=== PATIENT | female | born 1940 | race Caucasian/White ===

== ENCOUNTER 2019-03-05 06:07 | Day surgery (SDC) | payer MEDICARE, BC ==
[~2019-03-05] VITALS: Ht 157.5 cm; Wt 77.7 kg
[2019-03-05] MEDS ORDERED: LIPITOR20 MG PO (06:40)
[2019-03-05] MEDS ORDERED: LOPRESSOR 225 MG/TAB PO (06:41)
[2019-03-05] MEDS ORDERED: QUALITY CHOIC0.52 GM PO (06:42)
[2019-03-05 06:43] VITALS: BP 147/62; PULSE 68; TEMP 97.3
[2019-03-05] MEDS ORDERED: ASPIRIN 81M81 MG/TA2 PO (06:43)
[2019-03-05 08:26] VITALS: BP 99/56; PULSE 58
--- NOTE | 2019-03-05 08:26 | NUR ---
Patient returns to room 1 per cart from surgery and is awake and alert. IV fluids infusing and site is free of redness. Temp 97.5 and room air sats 94%. Denies pain or nausea. Aguilar set dressing dry on the right upper hip. No drainage or bruising noted. Siderails up x2 and call light in reach.
[2019-03-05 08:41] VITALS: BP 111/55; PULSE 53
--- NOTE | 2019-03-05 08:41 | NUR ---
Pat in room and talking with patient regarding settings and answers any questions. Sipping on coffee and water. Spouse in room.
[2019-03-05 08:56] VITALS: BP 110/55; PULSE 66
--- NOTE | 2019-03-05 08:56 | NUR ---
Eating muffin and drinking coffee. Room air sats 99%. Continues to deny pain or nausea.
[2019-03-05 09:11] VITALS: BP 118/81; PULSE 53
--- NOTE | 2019-03-05 09:11 | NUR ---
Tolerated muffin and coffee. Spouse in room.
--- NOTE | 2019-03-05 09:25 | NUR ---
IV discontinued and site is free of redness. Assisted up to the bathroom and gait is steady.
--- NOTE | 2019-03-05 09:30 | NUR ---
Dismissal instructions signed and patient and spouse both verbalize understanding of these. Patient dresses self.
--- NOTE | 2019-03-05 09:36 | NUR ---
Patient dismissed to home per wheelchair and taken to the front door per wheelchair and assisted into car with instructions in hand.
== END 2019-03-05 09:36 | disposition home or self-care (01) ==
LOC: SDCO 06:07
DX: R32 Unspecified urinary incontinence (principal); E78.5 Hyperlipidemia, unspecified; I25.10 Atherosclerotic heart disease of native coronary artery without angina pectoris; Z95.1 Presence of aortocoronary bypass graft; Z79.82 Long term (current) use of aspirin; Z91.040 Latex allergy status; F17.210 Nicotine dependence, cigarettes, uncomplicated
CPT/HCPCS: C1767; J2250; J2704; J3010